=== PATIENT | female | born 1985 | race Caucasian/White ===

== ENCOUNTER 2016-11-04 07:32 | Emergency (ER) | payer BC ==
[2016-11-04 07:44] VITALS: BP 135/89
[2016-11-04] MEDS ORDERED: Sodium Chloride 0.9% 1,000 ML IV ONE (08:12)
[2016-11-04] MEDS ORDERED: Ondansetron 4 MG/2 ML SDV IVPUSH ONE (08:12)
--- NOTE | 2016-11-04 08:13 | EDM.PDOC ---
ED HPI GI/ABDOMINAL - General Chief Complaint: Abdominal Pain Stated Complaint: abdominal pain and vomiting Time Seen by Provider: 11/04/16 08:00 Source of Information: Reports: Patient History Limitations: Reports: No limitations - History of Present Illness INITIAL COMMENTS - FREE TEXT/NARRATIVE: 31 YO WF presents to ER with a 1 day history of right sided abdominal pain and vomiting which began this am around 4am. Pt reports she woke with right sided pain and describes it as a sharp pain in the RUQ but also a dull pain with tenderness in the RLQ. Pt reports vomiting approx 3 times this am. Pt is currently on BCP. Pt denies any fever/chills, denies flank pain, denies dysuria or vaginal discharge. Symptom Onset Date: 11/04/16 Symptom Onset Time: 04:00 Timing/Duration: Reports: Hour(s): (4) Location: RLQ Quality: Reports: ache, stabbing Severity: moderate Improves with: Reports: vomiting Worsens with: Reports: sitting up Context: Denies: sick contact, bad/questionable food, out of country travel, recent surgery, recent trauma, lifting, activity/exercise Associated Symptoms (-Female): Reports: diarrhea, nausea/vomiting - Related Data Allergies/ADRs: Allergies Allergy/AdvReac Type Severity Reaction Status Date / Time No Known Drug Allergies Allergy Cannot Verified 11/04/16 07:41 Remember Home Meds: Home Meds Control 1 tab PO DAILY 11/04/16 [History] Ondansetron [Zofran ODT] 4 mg PO Q8H PRN #10 tab.dis 11/04/16 [Rx] Past Medical History HEENT History: Reports: None Gastrointestinal History: Reports: None Genitourinary History: Reports: None [employer] History: Reports: Musculoskeletal History: Reports: None Neurological History: Reports: None Psychiatric History: Reports: None Endocrine/Metabolic History: Reports: None Dermatologic History: Reports: None - Infectious Disease History Infectious Disease History: Reports: Chicken pox, Influenza - Past Surgical History HEENT Surgical History: Reports: None GI Surgical History: Reports: None Female Surgical History: Reports: section, Lithotripsy/ESWL Endocrine Surgical History: Reports: None Neurological Surgical History: Reports: None Musculoskeletal Surgical History: Reports: None Dermatological Surgical History: Reports: None Social & Family History - Tobacco Use Smoking Status *Q: Never Smoker Second Hand Smoke Exposure: No - Caffeine Use Caffeine Use: Reports: Coffee, Soda, Tea - Alcohol Use Days Per Week of Alcohol Use: 1 Number of Drinks Per Day: 3 Total Drinks Per Week: 3 - Recreational Drug Use Recreational Drug Use: No ED ROS GENERAL - Review of Systems Review Of Systems: See Below Constitutional: Reports: no symptoms HEENT: Reports: No symptoms Respiratory: Reports: No Symptoms Cardiovascular: Reports: No symptoms Endocrine: Reports: no symptoms GI/Abdominal: Reports: Abdominal pain, Diarrhea, Nausea, Vomiting : Reports: no symptoms Musculoskeletal: Reports: no symptoms Skin: Reports: no symptoms Neurological: Reports: No Symptoms Psychiatric: Reports: No symptoms Hematologic/Lymphatic: Reports: no symptoms Immunologic: Reports: no symptoms ED EXAM, GI/ABD - Physical Exam Exam: See Below Exam Limited By: No limitations General Appearance: alert, WD/WN, no apparent distress Nose: normal inspection, normal mucosa, no blood Head: atraumatic, normocephalic Neck: normal inspection, supple, non-tender, full range of motion Respiratory/Chest: no respiratory distress, lungs clear, normal breath sounds, no accessory muscle use, chest non-tender Cardiovascular: normal peripheral pulses, regular rate, rhythm, no edema, no gallop, no JVD, no murmur, no rub GI/Abdominal: normal bowel sounds, soft, no organomegaly, no distention, no abnormal bruit, tenderness (RUQ/RLQ). No: non tender Back Exam: normal inspection, full range of motion, NT Extremities: normal inspection, normal range of motion, non-tender, normal capillary refill, no pedal edema Neurological: alert, oriented, CN II-XII intact, normal cognition, normal gait, normal reflexes, no motor/sensory deficits Psychiatric: normal affect, normal mood Skin Exam: Warm, Dry, Intact, Normal color, No rash Lymphatic: no adenopathy Course - Vital Signs Last Recorded V/S: Last Vital Signs Temp 36.5 C 11/04/16 07:33 Pulse 97 11/04/16 07:33 Resp 20 11/04/16 07:33 BP 135/89 11/04/16 07:33 Pulse Ox 99 11/04/16 07:33 - Orders/Labs/Meds Orders: Active Orders 24 hr Category Date Time Status Abdomen Pelvis w Cont [CT] Stat Exams 11/04/16 08:19 Ordered Sodium Chloride 0.9% [Normal Saline] Med 11/04/16 09:00 Active 50 ml FLUSH ASDIRECTED Medication Orders Sodium Chloride (Normal Saline) 50 ml FLUSH ASDIRECTED MEREDITH Last Admin: 11/04/16 09:13 Dose: 50 ml Labs: Laboratory Tests 11/04/16 11/04/16 11/04/16 Range/Units 07:50 07:50 07:55 WBC 6.1 (5.0-10.0) 10^3/uL RBC 4.44 (3.80-5.50) 10^6/uL Hgb 14.0 (12.0-16.0) g/dL Hct 41.0 (37.0-47.0) % MCV 92.3 H (82.0-92.0) fL MCH 31.5 H (27.0-31.0) pg MCHC 34.1 (32.0-36.0) g/dL RDW 13.1 (11.5-14.5) % Plt Count 233 (150-300) 10^3/uL MPV 8.4 (7.4-10.4) fL Neut % (Auto) 68.3 (50.0-70.0) % Lymph % (Auto) 24.9 (20.0-40.0) % Ogle % (Auto) 5.8 (2.0-8.0) % Eos % (Auto) 0.9 L (1.0-3.0) % Baso % (Auto) 0.1 (0.0-1.0) % Neut # (Auto) 4.1 (2.5-7.0) 10^3/uL Lymph # (Auto) 1.5 (1.0-4.0) 10^3/uL Ogle # (Auto) 0.4 (0.1-0.8) 10^3/uL Eos # (Auto) 0.1 (0.1-0.3) 10^3/uL Baso # (Auto) 0.0 (0.0-0.1) 10^3/uL Sodium 137 (136-145) mmol/L Potassium 4.0 (3.3-5.3) mmol/L Chloride 103 (98-115) mmol/L Carbon Dioxide 24.4 (21.0-32.0) mmol/L BUN 15 (6-25) mg/dL Creatinine 0.69 (0.51-1.17) mg/dL Est Cr Clr Drug Dosing 130.09 mL/min Estimated GFR (MDRD) > 60 mL/min Glucose 103 (70-110) mg/dL Calcium 8.7 (8.7-10.3) mg/dL Total Bilirubin 0.3 (0.2-1.0) mg/dL AST 14 L (15-37) U/L ALT 15 (12-78) U/L Alkaline Phosphatase 50 (46-116) IU/L Total Protein 7.6 (6.4-8.2) g/dL Albumin 3.51 (3.00-4.80) g/dL Lipase 71 L (73-393) U/L HCG, Qual Negative (NEGATIVE) Specimen Type Urincc Urine Color Yellow (YELLOW) Urine Appearance Clear (CLEAR) Urine pH 5.0 (5.0-9.0) Ur Specific [place] 1.015 (1.005-1.030) Urine Protein Negative (NEGATIVE) mg/dL Urine Glucose (UA) Negative (NEGATIVE) mg/dL Urine Ketones Negative (NEGATIVE) mg/dL Urine Occult Blood Small H (NEGATIVE) Urine Nitrite Negative (NEGATIVE) Urine Bilirubin Negative (NEGATIVE) Urine Urobilinogen 0.2 (0.2-1.0) E.U./dL Ur Leukocyte Esterase Negative (NEGATIVE) Urine RBC 0-5 /HPF Urine WBC 0-5 /HPF Ur Epithelial Cells Occasional /LPF Urine Bacteria Occasional (NONE TO FEW) /HPF Meds: Medications Generic Name Dose Route Start Last Admin Trade Name Freq PRN Reason Stop Dose Admin Sodium Chloride 50 ml 11/04/16 09:00 11/04/16 09:13 Normal Saline FLUSH 50 ml ASDIRECTED MEREDITH Administration Discontinued Medications Generic Name Dose Route Start Last Admin Trade Name Freq PRN Reason Stop Dose Admin Hydromorphone HCl 0.5 mg 11/04/16 08:19 11/04/16 08:51 Dilaudid IVPUSH 11/04/16 08:20 0.5 mg ONETIME ONE Administration Hydromorphone HCl 0.5 mg 11/04/16 09:46 11/04/16 10:05 Dilaudid IVPUSH 11/04/16 09:47 0.5 mg ONETIME ONE Administration Sodium Chloride 1,000 mls @ 999 mls/hr 11/04/16 08:12 11/04/16 08:30 Normal Saline IV 11/04/16 09:12 999 mls/hr .BOLUS ONE Administration Iopamidol 75 ml 11/04/16 08:53 11/04/16 09:13 Isovue-300 (61%) IV 11/04/16 08:54 75 ml ONETIME ONE Administration Ondansetron HCl 4 mg 11/04/16 08:12 11/04/16 08:35 Zofran IVPUSH 11/04/16 08:13 4 mg ONETIME ONE Administration - Radiology Interpretation Free Text/Narrative:: CT ABD/PEL- moderate stool right hemidiaphram otherwise NAD CT Results Date: 11/04/16 CT Results Time: 10:07 Departure - Departure Time of Disposition: 10:08 Disposition: Home, Self-Care 01 Condition: good Clinical Impression: Abdominal pain Qualifiers: Abdominal location: right upper quadrant Qualified Code(s): R10.11 - Right upper quadrant pain Vomiting Qualifiers: Vomiting Intractability: non-intractable Nausea presence: with nausea Prescriptions: Ondansetron [Zofran ODT] 4 mg PO Q8H PRN #10 tab.dis PRN Reason: Vomiting Instructions: Abdominal Pain, Adult, [id number], Nausea and Vomiting, Adult, [id number], Constipation, Adult, [id number] Referrals: PCP,None [Primary Care Provider] - Shruthi Angeles MD [Physician] - Forms: ED Department Discharge - My Orders Last 24 Hours: My Active Orders 11/04/16 08:19 Abdomen Pelvis w Cont [CT] Stat 11/04/16 09:00 Sodium Chloride 0.9% [Normal Saline] 50 ml FLUSH ASDIRECTED - Assessment/Plan Last 24 Hours: My Active Orders 11/04/16 08:19 Abdomen Pelvis w Cont [CT] Stat 11/04/16 09:00 Sodium Chloride 0.9% [Normal Saline] 50 ml FLUSH ASDIRECTED Assessment:: 1. right sided abdominal pain 2. vomiting Plan: 1. simethicone 125mg Q6 PRN 2. colace 100mg BID 3. zofran 4mg ODT 4. clear liquid diet and progress as tolerated 5. return to ER for worsening symptoms
[2016-11-04] MEDS ORDERED: HYDROmorphone 1 MG/ML Syringe IVPUSH ONE ×2 (08:19→09:46)
[2016-11-04 08:22] LABS: CHLORIDE,CL 103 mmol/L (98-115); SODIUM,NA 137 mmol/L (136-145)
[2016-11-04] MEDS ORDERED: Iopamidol 612 MG/ML 75 ML Bottle IV ONE (08:53)
[2016-11-04] MEDS ORDERED: Sodium Chloride 0.9% 50 ML SDV FLUSH SCH (09:00)
== END 2016-11-04 10:15 | disposition home or self-care (01) ==
LOC: KA.ED 07:32
DX: R10.11 Right upper quadrant pain (principal); R11.2 Nausea with vomiting, unspecified; Z79.899 Other long term (current) drug therapy
CPT/HCPCS: 36415; 74177; 80053; 81001; 83690; 84703; 85025; 96361; 96374; 96375; 96376; 99284; J1170; J2405; J7030; Q9967